=== PATIENT | female | born 1990 | race Caucasian/White ===

== ENCOUNTER 2017-11-02 13:56 | Emergency (ER) | payer OTHER ==
[2017-11-02 14:06] VITALS: BP 134/60
--- NOTE | 2017-11-02 14:47 | EDM.PDOC ---
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 Past medical history: As per history of present illness and as reviewed below otherwise noncontributory. Surgical history: As per history of present illness and as reviewed below otherwise noncontributory. Social history: No reported history of drug or alcohol abuse. Family history: As per history of present illness and as reviewed below otherwise noncontributory. Physical exam: Deferred Diagnostics: Employee exposure panel Therapeutics: None Impression: #1 medical screening exam Definitive disposition and diagnosis as appropriate pending reevaluation and review of above. - Related Data Allergies Allergy/AdvReac Type Severity Reaction Status Date / Time vancomycin Allergy Hives Verified 11/02/17 14:05 Home Meds: Home Meds . 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, Musculoskeletal History: Reports: None Neurological History: Reports: None Psychiatric History: Reports: None Endocrine/Metabolic History: Reports: None Hematologic History: Reports: None Immunologic History: Reports: None Oncologic (Cancer) History: Reports: None Dermatologic History: Reports: None - Infectious Disease History Infectious Disease History: Reports: Chicken Pox, Shingles - Past Surgical History Head Surgeries/Procedures: Reports: None Dermatological Surgical History: Reports: Other (See Below) Social & Family History - Family History Family Medical History: Noncontributory - Tobacco Use Smoking Status *Q: Current Every Day Smoker Years of Tobacco use: 10 Packs/Tins Daily: 0.5 - Caffeine Use Caffeine Use: Reports: Coffee, Energy Drinks, Tea - Alcohol Use Days Per Week of Alcohol Use: 0 - Recreational Drug Use Recreational Drug Use: No ED ROS GENERAL - Review of Systems Review Of Systems: ROS reveals no pertinent complaints other than HPI. ED EXAM, GENERAL - Physical Exam Exam: See Below (See dictation) Course - Vital Signs Last Recorded V/S: Last Vital Signs Temp 36.3 C 11/02/17 14:03 Pulse 76 11/02/17 14:03 Resp 16 11/02/17 14:03 BP 134/60 11/02/17 14:03 Pulse Ox 98 11/02/17 14:03 - Orders/Labs/Meds Orders: Active Orders 24 hr Category Date Time Status HEP B SURFACE AB,QNT [REF] Stat Lab 11/02/17 14:39 Ordered HEPATITIS C AB [REF] Stat Lab 11/02/17 14:39 Ordered HIV12 AG/AB 4TH GEN W/REFLEX [CHEM] Stat Lab 11/02/17 14:39 Ordered Departure - Departure Time of Disposition: 14:46 Disposition: Home, Self-Care 01 Condition: Good Clinical Impression: Encounter for medical screening examination - Discharge Information Referrals: PCP,None [Primary Care Provider] - Additional Instructions: The following information is given to patients seen in the emergency department who are being discharged to home. This information is to outline your options for follow-up care. We provide all patients seen in our emergency department with a follow-up referral. The need for follow-up, as well as the timing and circumstances, are variable depending upon the specifics of your emergency department visit. If you don't have a primary care physician on staff, we will provide you with a referral. We always advise you to contact your personal physician following an emergency department visit to inform them of the circumstance of the visit and for follow-up with them and/or the need for any referrals to a consulting specialist. The emergency department will also refer you to a specialist when appropriate. This referral assures that you have the opportunity for followup care with a specialist. All of these measure are taken in an effort to provide you with optimal care, which includes your followup. Under all circumstances we always encourage you to contact your private physician who remains a resource for coordinating your care. When calling for followup care, please make the office aware that this follow-up is from your recent emergency room visit. If for any reason you are refused follow-up, please contact the [facility] emergency department at and asked to speak to the emergency department charge nurse. Primary medical doctor/occupational medicine return as needed as discussed] - My Orders Last 24 Hours: My Active Orders 11/02/17 14:39 HEP B SURFACE AB,QNT [REF] Stat HEPATITIS C AB [REF] Stat HIV12 AG/AB 4TH GEN W/REFLEX [CHEM] Stat - Assessment/Plan Last 24 Hours: My Active Orders 11/02/17 14:39 HEP B SURFACE AB,QNT [REF] Stat HEPATITIS C AB [REF] Stat HIV12 AG/AB 4TH GEN W/REFLEX [CHEM] Stat
== END 2017-11-02 15:30 | disposition home or self-care (01) ==
LOC: MW.ED 13:56
DX: Z13.818 Encounter for screening for other digestive system disorders (principal); F17.210 Nicotine dependence, cigarettes, uncomplicated; Z88.1 Allergy status to other antibiotic agents
CPT/HCPCS: 36415; 86706; 86803; 87389; 99282; 99283

== ENCOUNTER 2019-08-18 16:07 | Emergency (ER) | payer OTHER ==
[2019-08-18] MEDS ORDERED: Bacitracin Oint 1 GM U/D Packet TOP ONE (16:47)
[2019-08-18] MEDS ORDERED: Diphtheria,Pertussis(Acell),Tetanus Vaccine 0.5 ML Syringe IM ONE (16:47)
--- NOTE | 2019-08-18 16:52 | EDM.PDOC ---
ED HPI GENERAL MEDICAL PROBLEM - General Chief Complaint: Laceration Stated Complaint: LEFT HAND LACERATION Time Seen by Provider: 08/18/19 16:38 - History of Present Illness INITIAL COMMENTS - FREE TEXT/NARRATIVE: HISTORY AND PHYSICAL: History of present illness: The patient is a 29-year-old female who is right-hand dominant and unsure of her last tetanus shot in presents after actually cutting the web space between digits 1 and 2 on her left hand. She had a new knife and she accidentally hit it into a cabinet and it proceeded to impact her hand caught her and then fall to the ground. She has bleeding in the area and she was concerned that she may need a stitch but she only has mild pain to the area. The remainder of the hand is without injury and she has no other complaints. Her to these events she had no systemic issues. Review of systems: As per history of present illness and below otherwise all systems reviewed and negative. Past medical history: As per history of present illness and as reviewed below otherwise noncontributory. Surgical history: As per history of present illness and as reviewed below otherwise noncontributory. Social history: No reported history of drug or alcohol abuse. Family history: As per history of present illness and as reviewed below otherwise noncontributory. Physical exam: General: Well-developed well-nourished female who is nontoxic and vital signs are noted by me HEENT: Atraumatic, normocephalic, negative for conjunctival pallor or scleral icterus, mucous membranes moist, throat clear, neck supple, nontender, trachea midline. Lungs: Clear to auscultation, breath sounds equal bilaterally, chest nontender. Heart: S1S2, regular rate and rhythm no overt murmurs. Abdomen: Soft, nondistended, nontender. NABS Pelvis: Deferred Genitourinary: Deferred. Rectal: Deferred. Extremities: Atraumatic, full range of motion of all extremities except the left hand where there is a 7 mm x 7 mm arrowhead shaped laceration at the web space between digits 1 and 2. One side of this laceration seems to separate and there is subcutaneous tissue seen but the other side does not separate or open. There is some minimal oozing in the area and no soft tissue swelling or erythema. The patient has full range of motion of all digits and hand. There are no other injury seen on the digits or the left hand. Neurovascular unremarkable. Neuro: Awake, alert, oriented. Cranial nerves II through XII unremarkable. Cerebellum unremarkable. Motor and sensory unremarkable throughout. Exam nonfocal. Diagnostics: [] Therapeutics: Tdap, wound cleansing irrigation, bacitracin After nursing irrigated the wound I reevaluated it and the one edge of this arrowhead does not lift at all and the other is very clean and there is some subcutaneous tissue seen but there is no active bleeding. Because it in a difficult area I will have nursing place a piece of Gelfoam along with the bacitracin and a dressing. I did re-offer the patient one suture to bring that small laceration together and she would like to decline and just do conservative management Impression: Left hand laceration Definitive disposition and diagnosis as appropriate pending reevaluation and review of above. 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: Musculoskeletal History: Reports: None Neurological History: Reports: None Psychiatric History: Reports: None Endocrine/Metabolic History: Reports: None Hematologic History: Reports: None Immunologic History: Reports: None Oncologic (Cancer) History: Reports: None Dermatologic History: Reports: None - Infectious Disease History Infectious Disease History: Reports: None - Past Surgical History Head Surgeries/Procedures: Reports: None Dermatological Surgical History: Reports: Other (See Below) Social & Family History - Family History Family Medical History: Noncontributory - Tobacco Use Smoking Status *Q: Never Smoker - Caffeine Use Caffeine Use: Reports: None - Recreational Drug Use Recreational Drug Use: No ED ROS GENERAL - Review of Systems Review Of Systems: ROS reveals no pertinent complaints other than HPI. ED EXAM, SKIN/RASH Exam: See Below (see Dictation) Course - Vital Signs Last Recorded V/S: Last Vital Signs Temp 35.5 C 08/18/19 16:34 Pulse 75 08/18/19 16:34 Resp 15 08/18/19 16:34 BP 115/60 08/18/19 16:34 Pulse Ox 98 08/18/19 16:34 - Orders/Labs/Meds Orders: Active Orders 24 hr Category Date Time Status Communication Order [RC] STAT Care 08/18/19 16:48 Active Vaccines to be Administered [RC] PER UNIT ROUTINE Care 08/18/19 16:47 Active Meds: Medications Discontinued Medications Generic Name Dose Route Start Last Admin Trade Name Lisset PRN Reason Stop Dose Admin Bacitracin 1 dose 08/18/19 16:47 Bacitracin Oint 1 Gm TOP 08/18/19 16:48 ONETIME ONE Diphtheria/Tetanus/Acell Pertussis 0.5 ml 08/18/19 16:47 Adacel IM 08/18/19 16:48 .ONCE ONE Departure - Departure Time of Disposition: 17:11 Disposition: Home, Self-Care 01 Condition: Good Clinical Impression: Laceration of left hand Qualifiers: Encounter type: initial encounter Foreign body presence: without foreign body Qualified Code(s): S61.412A - Laceration without foreign body of left hand, initial encounter - Discharge Information Referrals: PCP,None [Primary Care Provider] - Forms: ED Department Discharge Additional Instructions: The following information is given to patients seen in the emergency department who are being discharged to home. This information is to outline your options for follow-up care. We provide all patients seen in our emergency department with a follow-up referral. The need for follow-up, as well as the timing and circumstances, are variable depending upon the specifics of your emergency department visit. If you don't have a primary care physician on staff, we will provide you with a referral. We always advise you to contact your personal physician following an emergency department visit to inform them of the circumstance of the visit and for follow-up with them and/or the need for any referrals to a consulting specialist. The emergency department will also refer you to a specialist when appropriate. This referral assures that you have the opportunity for followup care with a specialist. All of these measure are taken in an effort to provide you with optimal care, which includes your followup. Under all circumstances we always encourage you to contact your private physician who remains a resource for coordinating your care. When calling for followup care, please make the office aware that this follow-up is from your recent emergency room visit. If for any reason you are refused follow-up, please contact the emergency department at and ask to speak to the emergency department charge nurse. [facility] Primary care- Internal Medicine and Family [address] [address] Leave the dressing was placed on by the ER nurse in place for the next 24 hours and then remove the outer dressing and cleanse gently with mild soap and water but do not displace the Gelfoam as it will fall off on its own. Do not use Band- Aids. If you need to cover the area please use a breathable gauze dressing were nonstick dressing .. Call and schedule follow-up appointment with your provider or one of ours for further care and evaluation and return to ER as needed and as discussed - My Orders Last 24 Hours: My Active Orders 08/18/19 16:47 Vaccines to be Administered [RC] PER UNIT ROUTINE 08/18/19 16:48 Communication Order [RC] STAT - Assessment/Plan Last 24 Hours: My Active Orders 08/18/19 16:47 Vaccines to be Administered [RC] PER UNIT ROUTINE 08/18/19 16:48 Communication Order [RC] STAT
[2019-08-18 18:31] VITALS: BP 120/59; PULSE 85
== END 2019-08-18 18:27 | disposition home or self-care (01) ==
LOC: MW.ED 16:07
DX: S61.412A Laceration without foreign body of left hand, initial encounter (principal); Z23 Encounter for immunization; Z88.1 Allergy status to other antibiotic agents; W26.0XXA Contact with knife, initial encounter
CPT/HCPCS: 90471; 90715; 99282

== ENCOUNTER 2020-05-03 20:12 | Emergency (ER) | payer OTHER ==
--- NOTE | 2020-05-03 20:53 | EDM.PDOC ---
ED HPI GENERAL MEDICAL PROBLEM - General Chief Complaint: General Stated Complaint: COVIC TEST Time Seen by Provider: 05/03/20 20:51 - History of Present Illness INITIAL COMMENTS - FREE TEXT/NARRATIVE: HPI history of present illness: 29-year-old female presenting for COVID swab testing after COVID exposure on April 30. 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 The patient is asymptomatic. Review of systems: As per history of present illness and below otherwise all systems reviewed and negative. Past medical history: As per history of present illness and as reviewed below otherwise noncontributory. Surgical history: As per history of present illness and as reviewed below otherwise noncontributory. Social history: No reported history of drug or alcohol abuse. Family history: As per history of present illness and as reviewed below otherwise noncontributory. Physical exam: GEN: no acute distress, well appearing HEENT: Atraumatic, normocephalic, mucous membranes moist, Neck: supple, nontender, trachea midline. Lungs: No respiratory distress. Heart: RRR Extremities: Atraumatic. Neuro: Awake, alert, oriented. Neuro Exam nonfocal. Skin: warm, dry, no lesions Diagnostics: [] Therapeutics: [] MDM: Impression: [] Plan: [] Definitive disposition and diagnosis as appropriate pending reevaluation and review of above. 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: Musculoskeletal History: Reports: None Neurological History: Reports: None Psychiatric History: Reports: None Endocrine/Metabolic History: Reports: None Hematologic History: Reports: None Immunologic History: Reports: None Oncologic (Cancer) History: Reports: None Dermatologic History: Reports: None - Infectious Disease History Infectious Disease History: Reports: None - Past Surgical History Head Surgeries/Procedures: Reports: None Dermatological Surgical History: Reports: Other (See Below) Social & Family History - Family History Family Medical History: Noncontributory - Tobacco Use Smoking Status *Q: Never Smoker - Caffeine Use Caffeine Use: Reports: Coffee - Recreational Drug Use Recreational Drug Use: No ED ROS GENERAL - Review of Systems Review Of Systems: See Below (See HPI) ED EXAM, GENERAL - Physical Exam Exam: See Below (See HPI) Course - Vital Signs Text/Narrative:: Asymptomatic patient with known COVID exposure. Test sent. COVID negative. Discussed close monitoring for any development of symptoms and return if any severe symptoms. Patient agrees. Last Recorded V/S: Last Vital Signs Temp 97.5 F 05/03/20 20:33 Pulse 68 05/03/20 20:33 Resp 16 05/03/20 20:33 BP 129/75 05/03/20 20:33 Pulse Ox 100 05/03/20 20:33 - Orders/Labs/Meds Labs: Laboratory Tests 05/03/20 Range/Units 20:40 SARS-CoV-2 RNA (RT-PCR) NEGATIVE (NEGATIVE) - Re-Assessments/Exams Free Text/Narrative Re-Assessment/Exam: 05/03/20 21:32 Negative COVID swab, follow-up plan and return instructions discussed with patient. Departure - Departure Time of Disposition: 21:32 Disposition: Home, Self-Care 01 Clinical Impression: COVID-19 virus not detected - Discharge Information Instructions: COVID-19 Frequently Asked Questions Referrals: PCP,None [Primary Care Provider] - Forms: ED Department Discharge Additional Instructions: The following information is given to patients seen in the emergency department who are being discharged to home. This information is to outline your options for follow-up care. We provide all patients seen in our emergency department with a follow-up referral. The need for follow-up, as well as the timing and circumstances, are variable depending upon the specifics of your emergency department visit. If you don't have a primary care physician on staff, we will provide you with a referral. We always advise you to contact your personal physician following an emergency department visit to inform them of the circumstance of the visit and for follow-up with them and/or the need for any referrals to a consulting specialist. The emergency department will also refer you to a specialist when appropriate. This referral assures that you have the opportunity for follow-up care with a specialist. All of these measure are taken in an effort to provide you with optimal care, which includes your follow-up. Under all circumstances we always encourage you to contact your private physician who remains a resource for coordinating your care. When calling for follow-up care, please make the office aware that this follow-up is from your recent emergency room visit. If for any reason you are refused follow-up, please contact the [facility] Emergency Department at and asked to speak to the emergency department charge nurse. [facility] - Primary Care [address] [place] [id number] [facility] [address] [place] [id number] You have been exposed to COVID. Your chest swab was negative today. Please continue to monitor for the development of any symptoms and check to see if you have a fever at least once a day the next 10 days. Help any symptoms including cough, difficulty breathing, fever, vomiting, diarrhea or abdominal pain, please self isolate. If you have any severe symptoms please return to the emergency room immediately. Sepsis Event Note (ED) - Evaluation Sepsis Screening Result: No Definite Risk - Focused Exam Vital Signs: Vital Signs Temp Pulse Resp BP Pulse Ox 05/03/20 20:33 97.5 F 68 16 129/75 100
[2020-05-04 03:03] VITALS: BP 129/71; PULSE 91
== END 2020-05-03 21:44 | disposition home or self-care (01) ==
LOC: MW.ED 20:12
DX: Z20.828 Contact with and (suspected) exposure to other viral communicable diseases (principal); Z88.1 Allergy status to other antibiotic agents
CPT/HCPCS: 99282; U0002